=== PATIENT | male | born 1960 | race Caucasian/White ===

== ENCOUNTER 2023-01-24 13:14 | Emergency (ER) | payer MEDICAID ==
[~2023-01-24] VITALS: Ht 172.7 cm; Wt 98.0 kg
[~2023-01-24 13:14] MED LIST: ALBU6.7H14 INH; ASPI81TA52 PO; CARV3.122 PO; CLON-528 PO; GABA800T PO; HYDR-4353 PO; LEVO200T8 PO; PROM6.256 PO; QUET-1 PO; QUET25TA PO; SIMV-342 PO; SPIIN INH
[2023-01-24 13:24] VITALS: BP 122/63
[2023-01-24] MEDS ORDERED: HYDROcodone/acetaminophen 10/325mg tab PO ONE (15:15)
[2023-01-24 15:55] LABS: CLARITY,URINE SLIGHTLY CLOUDY (Clear); COLOR,URINE YELLOW (Yellow); GLUCOSE, URINE NEGATIVE (Neg); KETONES,URINE NEGATIVE (Neg); LEUKOCYTE ESTERASE ,URINE TRACE (Neg); NITRITES, URINE POSITIVE (Neg); OCCULT BLOOD,URINE NEGATIVE (Neg); PH,URINE 6.5 (4.8-8.0); PROTEIN,URINE NEGATIVE (Neg); UROBILINOGEN,URINE 0.2 E.U/dL (0.2-1.0)
[2023-01-24 15:56] LABS: UA COLLECTION TYPE CLN CATCH MIDSTREAM
[2023-01-24 16:22] LABS: BACTERIA,URINE 3+ /HPF (Neg); MUCUS STRANDS FEW /LPF (Neg); RBC,URINE NONE SEEN /HPF (0-2); SQUAMOUS EPITHELIAL CELL,UR FEW /LPF (FEW); WBC,URINE 20-30 /HPF (0-4)
[2023-01-24] MEDS ORDERED: HYDR-3965 PO ×3 (16:43→16:54)
[2023-01-24] MEDS ORDERED: SULF1TAB49 PO ×3 (16:43→16:54)
[2023-01-24] MEDS ORDERED: IBUP-1986 PO ×3 (16:43→16:54)
[2023-01-24] MEDS ORDERED: ketorolac trometh. 30mg/ml inj. IM ONE (16:45)
== END 2023-01-24 17:05 | disposition home or self-care (01) ==
LOC: ER 13:16
DX: S30.22XA Contusion of scrotum and testes, initial encounter (principal); J44.9 Chronic obstructive pulmonary disease, unspecified; F12.90 Cannabis use, unspecified, uncomplicated; Z88.8 Allergy status to other drugs, medicaments and biological substances; X58.XXXA Exposure to other specified factors, initial encounter; Y93.89 Activity, other specified; Y92.89 Other specified places as the place of occurrence of the external cause; Y99.8 Other external cause status
CPT/HCPCS: 76870; 81001; 87077; 87088; 87186; 93976; 96372; 99285; J1885